=== PATIENT | male | born 1950 | race Caucasian/White ===

== ENCOUNTER → 2017-07-10 | Outpatient (CLI) | payer BC, MEDICARE ==
[2017-07-10 13:51] LABS: Blood Urea Nitrogen 20 mg/dL (9-20)
--- NOTE | 2017-07-10 14:44 | CT ---
EXAMINATION TYPE: CT chest w con DATE OF EXAM: 07/10/2017 COMPARISON: 10/04/2015 HISTORY: 67-year-old male follow-up Renal Artery Aneurysm TECHNIQUE: Contiguous axial scanning of the chest after the administration of 100 mL of Omnipaque 300 . Coronal/sagittal reconstructions performed. CT DLP: 895.2mGycm. Automatic exposure control utilized for a dose reduction. FINDINGS: Heart normal size without pericardial effusion. Coronary vessel calcifications are present in remarka ble for coronary artery disease. Moderate aortic valvular calcifications are also noted. The ascending aorta measures 4.8 cm versus 4.6 cm on 10/04/2015. Conventional arch vessel branching anatomy. Upper descending thoracic aorta mildly aneurysmal at 3.4 cm, unchanged. Mid descending thoracic aorta mildly aneurysmal at 3.2 cm, unchanged. Lower descending thoracic aorta is ectatic and 2.9 cm, unchanged. No thoracic lymphadenopathy by CT size criteria. Redemonstrated elevation of the right hemidiaphragm with right basilar atelectasis and volume loss. N o consolidation or pleural effusion. 8 mm posterior right basilar pulmonary nodule is unchanged sugge sting a benign etiology. Visualized upper abdomen shows small hiatal hernia. Bones: Endplate spondylosis mid to lower thoracic spine. IMPRESSION: 1. Aneurysmal thoracic aorta (ascending slightly increased measuring 4.8 cm versus 4.6 cm on 6) (descending stable measuring up to 3.4 cm). 2. Stable elevation of the right hemidiaphragm with right basilar volume loss and atelectasis. 3. CAD and moderate aortic valvular calcifications. 4. The 8 mm posterior right basilar pulmonary nodule stable for nearly 2 years suggesting a benign et iology.
== END | disposition home or self-care (01) ==
LOC: RADCTMAIN 07-06 10:01
PROVIDERS: ATTEND Family Medicine
DX: I71.2 Thoracic aortic aneurysm, without rupture (principal); J98.11 Atelectasis; I25.10 Atherosclerotic heart disease of native coronary artery without angina pectoris; R91.1 Solitary pulmonary nodule; I70.0 Atherosclerosis of aorta
CPT/HCPCS: 82565; 84520; 71260; 36415; Q9967

== ENCOUNTER → 2018-01-13 | Outpatient (CLI) | payer MEDICARE ==
[2018-01-13 12:15] LABS: HCT 42.2 % (39.0-53.0); MCH 28.9 pg (25.0-35.0); MCV 87.5 fL (80.0-100.0); Mean Platelet Volume 6.8; Platelet Count 117 k/uL (150-450); RBC 4.82 m/uL (4.30-5.90); RDW 14.6 % (11.5-15.5); WBC 5.4 k/uL (3.8-10.6)
[2018-01-13 12:43] LABS: Anion Gap 6 mmol/L; Blood Urea Nitrogen 17 mg/dL (9-20); Carbon Dioxide 25 mmol/L (22-30); Chloride 111 mmol/L (98-107); Potassium 4.1 mmol/L (3.5-5.1); Sodium 142 mmol/L (137-145)
== END | disposition home or self-care (01) ==
LOC: LABPAT 11:01
PROVIDERS: ATTEND Internal Medicine Cardiovascular Disease
DX: Z01.812 Encounter for preprocedural laboratory examination (principal); I48.1 Persistent atrial fibrillation; I35.0 Nonrheumatic aortic (valve) stenosis; I10 Essential (primary) hypertension
CPT/HCPCS: 36415; 80051; 82565; 84520; 85027

== ENCOUNTER 2018-01-25 05:45 | Day surgery (SDC) | payer MEDICARE ==
[2018-01-15 10:34] VITALS: BMI 24.3
[2018-01-25] MEDS ORDERED: SODIUM CHLORIDE 0.9% 1,000 ML IV SCH ×2 (06:01→08:00)
[2018-01-25 06:34] VITALS: TEMP 97.4
[2018-01-25 06:45] LABS: Glucose,Whole Blood 107 mg/dL (75-99)
[2018-01-25] MEDS: BENZOCAINE SPRAY 1 CAN MUCOUS MEM ONE ×3 (07:15→07:35)
[2018-01-25] MEDS ORDERED: SODIUM CHLORIDE 0.9% 500 ML IV ONE ×2 (07:17)
[2018-01-25] MEDS ORDERED: LIDOCAINE 1% INJ 10MG/ML (20 ML MDV) ONE (07:34)
[2018-01-25] MEDS ORDERED: PROPOFOL 10 MG/ML 20 ML VIAL IV ONE (07:34)
[2018-01-25] MEDS ORDERED: PHENYLEPHRINE-0.9% NACL SYG 1 MG/10 ML SYRINGE ONE (07:34)
--- NOTE | 2018-01-25 07:59 | P.TEE ---
Indications for Procedure(s): Rule out left atrial thrombus before cardioversion Date of Procedure: 01/25/18 Preoperative Diagnosis: Atrial fibrillation with controlled ventricular response, hypertension and diabetes Postoperative Diagnosis: The same Procedure(s) Performed: NASIM Description of Procedure(s): INDICATION: To assess and rule out left atrial thrombus. History of bicuspid aortic valve CONSENT:. Informed consent was obtained from patient and family PROCEDURE:. Patient was brought to the lab in a fasting state. He was prepped and draped in the usual fashion. Patient was given IV sedation by department of anesthesia. The throat was sprayed with Cetacaine. A lubricated Omni probe was introduced into the oropharynx and was advanced into the esophagus. Multiple views were obtained. Patient tolerated the procedure well FINDINGS:. The aortic valve is thickened and mildly calcified and appears to be bicuspid. No significant regurgitation or stenosis noted. The mitral valve showed mild regurgitation but appeared to be structurally normal. Trace branch with mild regurgitation. The interatrial septum is intact without any shunt. Injection of the contrast saline bubbles did not reveal any crossover bubbles across the interatrial septum. Left atrial appendage is free of any clot. Left ventricle function appeared to be preserved. Biatrial enlargement. No significant plaque in the aorta. IMPRESSION:. No clot in the left atrial appendage. Bicuspid aortic valve without any significant valvular dysfunction. Preserved LV function PLAN:. Proceed with cardioversion.
[2018-01-25 08:00] LABS: Glucose,Whole Blood 114 mg/dL (75-99)
--- NOTE | 2018-01-25 08:02 | P.PCN ---
Date of Procedure: 01/25/18 Preoperative Diagnosis: Atrial fibrillation with controlled ventricular response. Postoperative Diagnosis: Successful cardioversion to sinus rhythm Procedure(s) Performed: NASIM followed by cardioversion Description of Procedure: Patient was brought in a fasting state. Patient was prepped and draped in the usual fashion. Patient IV sedation was given by department of anesthesia. Syncopal shocks of 200, 300 followed with the 350 J was applied. Patient converted to sinus rhythm after last shock. Patient tolerated the procedure well. No immediate complications. Impression: Successful cardioversion. Plan: Patient will continue on current medical therapy. We'll also initiate him on flecainide 150 mg by mouth twice a day.
[2018-01-25] MEDS ORDERED: FLECAINIDE 50 MG TAB PO STA (09:00)
[2018-01-25 10:46] VITALS: PULSE 68
[2018-01-25 10:50] VITALS: BP 132/77; RESP 18
== END 2018-01-25 10:30 | disposition home or self-care (01) ==
LOC: CATHCVL 05:45
PROVIDERS: ATTEND Internal Medicine Cardiovascular Disease
DX: I48.1 Persistent atrial fibrillation (principal); I10 Essential (primary) hypertension; E11.9 Type 2 diabetes mellitus without complications; E78.5 Hyperlipidemia, unspecified; E78.00 Pure hypercholesterolemia, unspecified; I35.0 Nonrheumatic aortic (valve) stenosis; Z79.82 Long term (current) use of aspirin; Z79.4 Long term (current) use of insulin; Z79.01 Long term (current) use of anticoagulants; Z79.899 Other long term (current) drug therapy
CPT/HCPCS: 93312; 93320; 93325; 92960; J2001; J2370; J2704

== ENCOUNTER → 2018-08-13 | Outpatient (CLI) | payer MEDICARE ==
[2018-08-13 10:46] LABS: Blood Urea Nitrogen 19 mg/dL (9-20)
--- NOTE | 2018-08-13 11:55 | CT ---
EXAMINATION TYPE: CT angio chest DATE OF EXAM: 08/13/2018 COMPARISON: 07/10/2017, 10/04/2015 and 04/19/2015 HISTORY: Thoracic aortic aneurysm. Follow-up exam. Right lower lobe pulmonary nodule. CT DLP: 887.3 mGycm. Automated Exposure Control for Dose Reduction was Utilized. CONTRAST: CTA scan of the thorax is performed with IV Contrast, patient injected with 100 mL of Isovue 370, pul monary embolism protocol. MIP Images are created on CT scanner and reviewed. FINDINGS: LUNGS: There is strand-like bibasilar subsegmental atelectasis. The previously noted approximately 7 mm pulmonary nodule again is stable 4 greater than 2 years dating back to 04/19/2015 and should be co nsidered benign.. The tracheobronchial tree is patent. MEDIASTINUM: There is evidence of central pulmonary embolism. Ascending thoracic aorta is again enla rged measuring approximately 4.7 cm on coronal image 16. Aortic root on image 18 is mildly enlarged m easuring 4.1 cm. Descending thoracic aorta is within normal limits measuring 3.2 cm in its midportion , stable from the prior. Aortic leaflet calcifications are again noted. Mild coronary artery calcific ations are seen. There are no greater than 1 cm hilar or mediastinal lymph nodes. No cardiomegaly o r pericardial effusion is seen. Right hemidiaphragm elevation is redemonstrated. OTHER: There is decreased attenuation of the hepatic parenchyma suggesting underlying hepatic steatos is. Splenule is noted adjacent to the [employer] spleen. There is a slight nodular morphology of the bila teral adrenal glands although they maintain a normal adreniform shape suggesting underlying adrenal g land hyperplasia. There is a very small hiatal hernia. Partial visualization of a left lower pole cys tic renal lesion measures 1.3 cm. Moderate multilevel degenerative changes of the spine are noted. IMPRESSION: 1. Stable aneurysmal dilatation of the ascending thoracic aorta measuring approximately 4.7 cm. Aorti c root is also mildly enlarged measuring 4.1 cm. 2. Stability of the right basilar pulmonary nodule dates back to 2014. This should be considered aaron gn. 3. Redemonstration of coronary artery calcifications, a marker of coronary artery disease.
== END | disposition home or self-care (01) ==
LOC: RADCTMAIN 10:00
PROVIDERS: ATTEND Thoracic Surgery (Cardiothoracic Vascular Surgery)
DX: I71.2 Thoracic aortic aneurysm, without rupture (principal); I25.10 Atherosclerotic heart disease of native coronary artery without angina pectoris; R91.1 Solitary pulmonary nodule
CPT/HCPCS: 82565; 84520; 71275; 36415; Q9967

== ENCOUNTER → 2019-04-07 | Outpatient (CLI) | payer MEDICARE ==
--- NOTE | 2019-04-07 13:17 | CT ---
CT CHEST FOR PULMONARY EMBOLISM. EXAMINATION TYPE: CT angio chest DATE OF EXAM: 04/07/2019 INDICATION: Follow up known thoracic aortic aneurysm CT DLP: 584.6 mGycm, Automated exposure control for dose reduction was used. CONTRAST: Patient injected with 100 mL of Isovue 370. COMPARISON: 08/13/2018 TECHNIQUE: CT of the chest is performed on a spiral scan at 2 mm thick sections. Study is performed with intravenous contrast timed for evaluation for pulmonary embolism. This will limit additional po rtions of the evaluation. 3-D MIP images reconstructed by the technologist are reviewed on the compu ter in the coronal and sagittal planes. FINDINGS: No persistent filling defects are evident to suggest an acute pulmonary embolism. No mediastinal or hilar adenopathy enlarged by CT criteria is evident. The ascending aorta diameter at the level of the main pulmonary artery is 4.8 cm. The main pulmonary artery diameter at the bifur cation is 3.2 cm. Lung windows are clear. Limited CT section through the upper abdomen are unremarkable. IMPRESSIONS: 1. Aneurysmal prominence of the ascending thoracic aorta at the level of the main pulmonary artery me asuring 4.8 cm. The aorta tapers to its visualized course to the diaphragm. 2. No acute pulmonary embolism.
== END | disposition home or self-care (01) ==
LOC: RADCTMAIN 10:35
PROVIDERS: ATTEND Internal Medicine Cardiovascular Disease
DX: I71.2 Thoracic aortic aneurysm, without rupture (principal)
CPT/HCPCS: 82565; 84520; 71275; Q9967